=== PATIENT | female | born 1970 | race Two or more races ===

== ENCOUNTER 2017-02-15 17:54 | Emergency (ER) | payer MEDICAID ==
--- NOTE | 2017-02-15 18:15 | EDM.PDOC ---
ED HPI GENERAL MEDICAL PROBLEM - General Chief Complaint: General Stated Complaint: Headache; Neck Pain; s/p surgery Time Seen by Provider: 02/15/17 17:57 Source of Information: Reports: Patient, Old Records, RN, RN Notes Reviewed History Limitations: Reports: No Limitations - History of Present Illness INITIAL COMMENTS - FREE TEXT/NARRATIVE: Patient presents to the ED at [facility] complaining of nausea, neck numbness, left facial numbness, and headache. Patient recently underwent surgery on 02/06/2017 for Grade three and four glenohumeral arthritis with loose bodies. According to old records, surgery was uneventful. Patient states her symptoms began yesterday sometime and have progressively gotten worse. Patient admits to smoking Marijuana and doing Meth today. Onset: Gradual Duration: Getting Worse Left Neck Pain Score (Numeric/FACES): 8 - Related Data Allergies Allergy/AdvReac Type Severity Reaction Status Date / Time buspirone [From BuSpar] Allergy Seizure Verified 02/15/17 18:01 tramadol Allergy Seizure Verified 02/15/17 18:01 Home Meds: Home Meds Aspirin 81 mg PO DAILY 02/15/17 [History] Divalproex Sodium 250 mg PO DAILY 02/15/17 [History] Estradiol [Estradiol] 1 patch TOP WEEKLY 02/15/17 [History] Hydrocodone/Acetaminophen [Hydrocodon-Acetaminophen 5-325] 1 each PO Q4H PRN [History] Ibuprofen [Motrin] 800 mg PO Q8H PRN 02/15/17 [History] Ondansetron HCl [Ondansetron] 4 mg PO Q6H PRN 02/15/17 [History] QUEtiapine [SEROquel] 50 - 100 mg PO BEDTIME 02/15/17 [History] amLODIPine/Valsartan [Amlodipine-Valsartan 5-160 mg] 1 tab PO DAILY 02/15/17 [ History] hydrOXYzine Pamoate [Hydroxyzine Pamoate] 25 mg PO Q6H PRN 02/15/17 [History] Past Medical History Cardiovascular History: Reports: Hypertension Psychiatric History: Reports: Anxiety, Depression - Past Surgical History Female Surgical History: Reports: Hysterectomy Social & Family History - Family History Family Medical History: Noncontributory - Tobacco Use Smoking Status *Q: Current Every Day Smoker Years of Tobacco use: 34 Packs/Tins Daily: 1 - Caffeine Use Caffeine Use: Reports: None - Recreational Drug Use Recreational Drug Use: Yes Drug Use in Last 12 Months: Yes Recreational Drug Type: Reports: Marijuana/Hashish, Methamphetamine Recreational Drug Use Frequency: Weekly ED ROS GENERAL - Review of Systems Review Of Systems: See Below Constitutional: Denies: Fever, Chills, Weakness Respiratory: Denies: Shortness of Breath, Cough Cardiovascular: Denies: Chest Pain, Palpitations GI/Abdominal: Reports: Nausea. Denies: Vomiting Musculoskeletal: Reports: Neck Pain, Shoulder Pain, Muscle Pain, Other (See HPI) Skin: Reports: No Symptoms Neurological: Reports: Headache, Numbness. Denies: Dizziness, Paresthesia, Tingling ED EXAM, GENERAL - Physical Exam Exam: See Below Exam Limited By: No Limitations General Appearance: Alert, No Apparent Distress, Thin, Cachetic Eye Exam: Bilateral Eye: EOMI, Normal Inspection, PERRL Ears: Normal External Exam, Normal Canal, Normal TMs Ear Exam: Bilateral Ear: TM normal Head: Atraumatic, Normocephalic Neck: Supple, Limited Range of Motion (due to pain), Tender Lateral (Left) Respiratory/Chest: No Respiratory Distress, Lungs Clear, Normal Breath Sounds Cardiovascular: Normal Peripheral Pulses, Regular Rate, Rhythm Peripheral Pulses: 2+: Radial (L), Radial (R) GI/Abdominal: Normal Bowel Sounds, Soft, Non-Tender Back Exam: Normal Inspection, Paraspinal Tenderness Extremities: Normal Inspection Neurological: Alert, Oriented, Normal Cognition Skin Exam: Warm, Dry, Intact, Normal Color, No Rash Course - Vital Signs Last Recorded V/S: Last Vital Signs Temp 36.0 C 02/15/17 17:56 Pulse 80 02/15/17 17:56 Resp 20 02/15/17 17:56 BP 145/93 H 02/15/17 19:50 Pulse Ox 100 02/15/17 17:56 - Orders/Labs/Meds Orders: Active Orders 24 hr Category Date Time Status Cervical Spine wo Cont [CT] Stat Exams 02/15/17 18:09 Ordered Head wo Cont [CT] Stat Exams 02/15/17 18:09 Ordered Thoracic Spine wo Cont [CT] Stat Exams 02/15/17 18:09 Taken Sodium Chloride 0.9% [Saline Flush] Med 02/15/17 18:25 Active 10 ml FLUSH ASDIRECTED PRN Peripheral IV Insertion Adult [OM.PC] Routine Oth 02/15/17 18:25 Ordered Medication Orders Sodium Chloride (Saline Flush) 10 ml FLUSH ASDIRECTED PRN PRN Reason: Keep Vein Open Meds: Medications Generic Name Dose Route Start Last Admin Trade Name Freq PRN Reason Stop Dose Admin Sodium Chloride 10 ml 02/15/17 18:25 Saline Flush FLUSH ASDIRECTED PRN Keep Vein Open Discontinued Medications Generic Name Dose Route Start Last Admin Trade Name Freq PRN Reason Stop Dose Admin Clonidine HCl 0.1 mg 02/15/17 18:38 02/15/17 18:42 Catapres PO 02/15/17 18:39 0.1 mg ONETIME ONE Administration Enalaprilat 1.25 mg 02/15/17 18:38 02/15/17 18:43 Vasotec Iv IVPUSH 02/15/17 18:39 1.25 mg ONETIME ONE Administration Lactated Ringer's 1,000 mls @ 999 mls/hr 02/15/17 18:26 02/15/17 18:33 Ringers, Lactated IV 02/15/17 19:26 999 mls/hr ONETIME ONE Administration Ondansetron HCl 4 mg 02/15/17 18:26 02/15/17 18:34 Zofran IVPUSH 02/15/17 18:27 4 mg ONETIME ONE Administration Prochlorperazine Edisylate 10 mg 02/15/17 19:43 02/15/17 19:46 Compazine IV 02/15/17 19:44 10 mg ONETIME ONE Administration - Radiology Interpretation Free Text/Narrative:: CT Head: Normal examination of the brain CT C-Spine: No acute findings in the cervical spine CT T-Spine: Moderate changes of spondylosis diffusely throughout the thoracic spine without significant stenosis See scanned reports in EMR CT Results Date: 02/15/17 CT Results Time: 19:38 Departure - Departure Time of Disposition: 20:03 Disposition: Home, Self-Care 01 Condition: Good Clinical Impression: Postoperative pain of extremity - Discharge Information Instructions: Pain Relief Preoperatively and Postoperatively Referrals: Shen Cedeno PA-C [Primary Care Provider] - Forms: ED Department Discharge Additional Instructions: 1. Stay well hydrated and rest 2. May alternate Tylenol/Advil as needed 3. If you need something stronger for pain, please call your surgeon or Primary provider 4. May apply heat/ice to sore uncomfortable areas 5. Keep follow up appointments with surgeon as scheduled 6. Call with any questions/concerns 7. CT scans were all normal - Problem List Review Problem List Initiated/Reviewed/Updated: Yes - My Orders Last 24 Hours: My Active Orders 02/15/17 18:09 Cervical Spine wo Cont [CT] Stat Head wo Cont [CT] Stat Thoracic Spine wo Cont [CT] Stat 02/15/17 18:25 Sodium Chloride 0.9% [Saline Flush] 10 ml FLUSH ASDIRECTED PRN Peripheral IV Insertion Adult [OM.PC] Routine - Assessment/Plan Last 24 Hours: My Active Orders 02/15/17 18:09 Cervical Spine wo Cont [CT] Stat Head wo Cont [CT] Stat Thoracic Spine wo Cont [CT] Stat 02/15/17 18:25 Sodium Chloride 0.9% [Saline Flush] 10 ml FLUSH ASDIRECTED PRN Peripheral IV Insertion Adult [OM.PC] Routine
[2017-02-15] MEDS ORDERED: Sodium Chloride 0.9% 10 ML Syringe FLUSH PRN (18:25)
[2017-02-15] MEDS ORDERED: Ondansetron 4 MG/2 ML SDV IVPUSH ONE (18:26)
[2017-02-15] MEDS ORDERED: Lactated Ringers 1,000 ML IV ONE (18:26)
[2017-02-15] MEDS ORDERED: Enalaprilat 1.25 MG/ML SDV IVPUSH ONE (18:38)
[2017-02-15] MEDS ORDERED: cloNIDine 0.1 MG Tab PO ONE (18:38)
[2017-02-15] MEDS ORDERED: Prochlorperazine 10 MG/2 ML SDV IV ONE (19:43)
[2017-02-15 20:01] VITALS: BP 162/97
== END 2017-02-15 20:10 | disposition home or self-care (01) ==
LOC: VM.ED 17:54
DX: G89.18 Other acute postprocedural pain (principal); M54.2 Cervicalgia; M47.894 Other spondylosis, thoracic region; I10 Essential (primary) hypertension; F32.9 Major depressive disorder, single episode, unspecified; F17.210 Nicotine dependence, cigarettes, uncomplicated; Z79.899 Other long term (current) drug therapy; Z79.82 Long term (current) use of aspirin; Z88.5 Allergy status to narcotic agent; Z88.8 Allergy status to other drugs, medicaments and biological substances
CPT/HCPCS: 72128; 96361; 96374; 96375; 99284; A9270; J0780; J2405; J7120; 70450; 72125

== ENCOUNTER 2017-08-12 23:01 | Emergency (ER) | payer MEDICAID ==
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
[2017-08-12] MEDS ORDERED: Ibuprofen 200 MG Tab PO ONE (23:44)
[2017-08-13 00:26] VITALS: BP 172/100
== END 2017-08-13 00:25 | disposition home or self-care (01) ==
LOC: VM.ED 23:01
DX: S20.212A Contusion of left front wall of thorax, initial encounter (principal); I10 Essential (primary) hypertension; Z79.899 Other long term (current) drug therapy; Z88.8 Allergy status to other drugs, medicaments and biological substances; Z79.82 Long term (current) use of aspirin; Y04.2XXA Assault by strike against or bumped into by another person, initial encounter
CPT/HCPCS: 71101; 99283; A9270

== ENCOUNTER 2018-05-14 22:37 | Emergency (ER) | payer MEDICAID ==
[2018-05-14] MEDS ORDERED: Sodium Chloride 0.9% 10 ML Syringe FLUSH PRN (23:09)
[2018-05-14] MEDS ORDERED: Enalaprilat 1.25 MG/ML SDV IVPUSH ONE (23:10)
[2018-05-14] MEDS ORDERED: cloNIDine 0.1 MG Tab PO SCH (23:15)
[2018-05-15 00:10] LABS: ANION GAP 12.5 mmol/L (10-20); CHLORIDE,CL 106 mmol/L (98-107); SODIUM,NA 144 mmol/L (136-145)
[2018-05-15 01:34] VITALS: BP 173/109
--- NOTE | 2018-05-15 09:40 | EDM.PDOC ---
ED HPI GENERAL MEDICAL PROBLEM - General Chief Complaint: General Stated Complaint: Hypertension, medical screening Time Seen by Provider: 05/14/18 22:45 Source of Information: Reports: Patient History Limitations: Reports: No Limitations - History of Present Illness INITIAL COMMENTS - FREE TEXT/NARRATIVE: Pt. was arrested tonight. She was found to be hypertensive on intake to the halfway and was sent to ER. Pt. states that her blood pressure always runs this high, often greater than 180/100 at home. She states that she uses methamphetamine regularly. Denies any headache. No chest pain or shortness of breath. No nausea, vomiting, or diarrhea. She states that she took her medications this AM but states that she often forgets to take them. She is currently prescribed propranolol and triamterene/ HCTZ. Pt. states that she has no complaints. Onset Date: 05/14/18 left lateral neck Pain Score (Numeric/FACES): 5 - Related Data Allergies Allergy/AdvReac Type Severity Reaction Status Date / Time buspirone [From BuSpar] Allergy Seizure Verified 05/15/18 01:19 tramadol Allergy Seizure Verified 05/15/18 01:19 Home Meds: Home Meds Aspirin 81 mg PO DAILY 02/15/17 [History] Divalproex Sodium 250 mg PO DAILY 02/15/17 [History] Estradiol 1 patch TOP WEEKLY 02/15/17 [History] Hydrocodone/Acetaminophen [Hydrocodon-Acetaminophen 5-325] 1 each PO Q4H PRN [History] Ibuprofen [Motrin] 800 mg PO Q8H PRN 02/15/17 [History] Ondansetron HCl [Ondansetron] 4 mg PO Q6H PRN 02/15/17 [History] QUEtiapine [SEROquel] 50 - 100 mg PO BEDTIME 02/15/17 [History] amLODIPine/Valsartan [Amlodipine-Valsartan 5-160 mg] 1 tab PO DAILY 02/15/17 [ History] hydrOXYzine pamoate [Hydroxyzine Pamoate] 25 mg PO Q6H PRN 02/15/17 [History] Past Medical History Cardiovascular History: Reports: Hypertension Psychiatric History: Reports: Addiction, Anxiety, Depression Other Psychiatric History: Drug abuse - Past Surgical History Female Surgical History: Reports: Hysterectomy Social & Family History - Family History Family Medical History: Noncontributory - Tobacco Use Smoking Status *Q: Unknown Ever Smoked - Caffeine Use Caffeine Use: Reports: None - Recreational Drug Use Recreational Drug Use: Yes Drug Use in Last 12 Months: Yes Recreational Drug Type: Reports: Methamphetamine Other Recreational Drug Type: Drug abuse/meth ED ROS GENERAL - Review of Systems Review Of Systems: See Below Constitutional: Reports: No Symptoms HEENT: Reports: No Symptoms Respiratory: Reports: No Symptoms Cardiovascular: Reports: Blood Pressure Problem Endocrine: Reports: No Symptoms GI/Abdominal: Reports: No Symptoms : Reports: No Symptoms Musculoskeletal: Reports: No Symptoms Skin: Reports: No Symptoms Neurological: Reports: No Symptoms Psychiatric: Reports: No Symptoms Hematologic/Lymphatic: Reports: No Symptoms Immunologic: Reports: No Symptoms ED EXAM, GENERAL - Physical Exam Exam: See Below Exam Limited By: No Limitations General Appearance: Alert, WD/WN, No Apparent Distress Eye Exam: Bilateral Eye: EOMI, Normal Fundi, Normal Inspection, PERRL Throat/Mouth: Normal Inspection, Normal Lips, Normal Teeth, Normal Gums, Normal Oropharynx, Normal Voice, No Airway Compromise Head: Atraumatic, Normocephalic Neck: Normal Inspection, Supple, Non-Tender, Full Range of Motion Respiratory/Chest: No Respiratory Distress, Lungs Clear, Normal Breath Sounds, No Accessory Muscle Use, Chest Non-Tender Cardiovascular: Normal Peripheral Pulses, Regular Rate, Rhythm, No Edema, No Gallop, No JVD, No Murmur, No Rub GI/Abdominal: Normal Bowel Sounds, Soft, Non-Tender, No Organomegaly, No Distention, No Abnormal Bruit, No Mass Extremities: Normal Inspection, Normal Range of Motion, Non-Tender, Normal Capillary Refill, No Pedal Edema Neurological: Alert, Oriented, CN II-XII Intact, Normal Cognition, Normal Gait, Normal Reflexes, No Motor/Sensory Deficits EKG INTERPRETATION Rhythm: NSR [place]: Normal P-Wave: Present QRS: Normal ST-T: Normal QT: Normal Comparison: No Change Course - Vital Signs Last Recorded V/S: Last Vital Signs Temp 36.1 C 05/14/18 23:40 Pulse 72 05/15/18 00:30 Resp 16 05/14/18 23:40 BP 173/109 H 05/15/18 00:30 Pulse Ox 97 05/14/18 23:40 - Orders/Labs/Meds Orders: Active Orders 24 hr Category Date Time Status EKG Documentation Completion [RC] STAT Care 05/14/18 23:09 Active Peripheral IV Insertion Adult [OM.PC] Routine Oth 05/14/18 23:09 Ordered Labs: Laboratory Tests 05/14/18 05/14/18 Range/Units 23:25 23:25 WBC 6.7 (4.0-10.0) x10^3/uL RBC 4.59 (4.00-5.50) x10^6/uL Hgb 13.5 (12.0-16.0) g/dL Hct 40.9 (33.0-47.0) % MCV 89.1 (78.0-93.0) fL MCH 29.4 (26.0-32.0) pg MCHC 33.0 (32.0-36.0) g/dL RDW Coeff of Chitra 13.9 (10.0-15.0) % Plt Count 187 (130-400) x10^3/uL Neut % (Auto) 67.3 (50.0-80.0) % Lymph % (Auto) 24.5 L (25.0-50.0) % [place] % (Auto) 6.5 (2.0-11.0) % Eos % (Auto) 1.4 (0.0-4.0) % Baso % (Auto) 0.3 (0.2-1.2) % Sodium 144 (136-145) mmol/L Potassium 3.5 (3.5-5.1) mmol/L Chloride 106 (98-107) mmol/L Carbon Dioxide 29 (21-32) mmol/L Anion Gap 12.5 (10-20) mmol/L BUN 13 (7-18) mg/dL Creatinine 0.8 (0.55-1.02) mg/dL Est Cr Clr Drug Dosing TNP Estimated GFR (MDRD) > 60 Glucose 113 H (74-106) mg/dL Calcium 9.1 (8.5-10.1) mg/dL Corrected Calcium 9.58 (8.5-10.1) mg/dL Phosphorus 4.0 (2.6-4.7) mg/dL Magnesium 2.1 (1.8-2.4) mg/dL Total Bilirubin 0.6 (0.2-1.0) mg/dL AST 26 (15-37) U/L ALT 40 (14-59) U/L Alkaline Phosphatase 109 (46-116) U/L Troponin I < 0.017 (<=0.056) ng/mL Total Protein 7.5 (6.4-8.2) g/dL Albumin 3.4 (3.4-5.0) g/dL Globulin 4.1 Albumin/Globulin Ratio 0.83 TSH, Ultra Sensitive 1.979 (0.358-3.74) uIU/mL Meds: Medications Discontinued Medications Generic Name Dose Route Start Last Admin Trade Name Freq PRN Reason Stop Dose Admin Clonidine HCl 0.1 mg 05/14/18 23:15 05/14/18 23:35 Catapres PO 0.1 mg DAILY KELLY Administration Enalaprilat 1.25 mg 05/14/18 23:10 05/14/18 23:29 Vasotec Iv IVPUSH 05/14/18 23:11 1.25 mg ONETIME ONE Administration Sodium Chloride 10 ml 05/14/18 23:09 Saline Flush FLUSH ASDIRECTED PRN Keep Vein Open - Re-Assessments/Exams Free Text/Narrative Re-Assessment/Exam: Pt. was given 0.1mg clonidine and 1.25mg enalaprilat IV. Blood pressure did improve significantly. Will start lisinopril 10mg PO daily and have her follow- up for recheck within the next week in the clinic. Departure - Departure Time of Disposition: 00:35 Disposition: DC/Tfer to Other 70 Clinical Impression: Hypertension - Discharge Information Instructions: Hypertension Referrals: Shen Cedeno PA-C [Primary Care Provider] - Forms: ED Department Discharge Additional Instructions: Follow-up with PCP as soon as possible. In addition to your other medications, start lisinopril 10mg once daily Do not use methamphetamine as it increases your blood pressure - My Orders Last 24 Hours: My Active Orders 05/14/18 23:09 EKG Documentation Completion [RC] STAT Peripheral IV Insertion Adult [OM.PC] Routine - Assessment/Plan Last 24 Hours: My Active Orders 05/14/18 23:09 EKG Documentation Completion [RC] STAT Peripheral IV Insertion Adult [OM.PC] Routine Plan: Follow-up with PCP as soon as possible. In addition to your other medications, start lisinopril 10mg once daily Do not use methamphetamine as it increases your blood pressure
== END 2018-05-15 00:33 | disposition other institution (70) ==
LOC: VM.ED 22:37
DX: I10 Essential (primary) hypertension (principal); F41.9 Anxiety disorder, unspecified; F32.9 Major depressive disorder, single episode, unspecified; Z79.82 Long term (current) use of aspirin; Z79.899 Other long term (current) drug therapy; Z88.6 Allergy status to analgesic agent; Z88.8 Allergy status to other drugs, medicaments and biological substances
CPT/HCPCS: 80053; 83735; 84100; 84443; 84484; 85025; 93005; 99284; A9270

== ENCOUNTER 2018-06-03 01:21 | Emergency (ER) | payer MEDICAID ==
[2018-06-03] MEDS ORDERED: cloNIDine 0.1 MG Tab PO ONE (01:36)
--- NOTE | 2018-06-03 01:56 | EDM.PDOC ---
ED HPI GENERAL MEDICAL PROBLEM - General Chief Complaint: General Time Seen by Provider: 06/03/18 01:30 Source of Information: Reports: Patient History Limitations: Reports: No Limitations - History of Present Illness INITIAL COMMENTS - FREE TEXT/NARRATIVE: Pt. presents to ER with complaints of fatigue, hypertension, and generally not feeling well. Pt. states that she has been experiencing this for several weeks. She was seen in the ER earlier this month to be cleared for incarceration and was found to be extremely hypertensive. At that time she reported that she uses meth regularly and states that she has been taking her blood pressure medications irregularly. She was started on Lisinopril in addition to her Propranolol ER 60mg and Triamterene/HCTZ 37.5/25mg. She states that she has been taking her medications regularly but states that her blood pressure has been very high the past few days. Her BP at home is 214/139 yesterday. Denies any chest pain or shortness of breath. No headache. No nausea, vomiting, or diarrhea. No numbness/tingling in her extremities. She now denies any drug or alcohol use. Denies any recent illness. Onset: Today Onset Date: 06/03/18 Location: Reports: Generalized - Related Data Allergies Allergy/AdvReac Type Severity Reaction Status Date / Time buspirone [From BuSpar] Allergy Seizure Verified 06/03/18 01:25 tramadol Allergy Seizure Verified 06/03/18 01:25 Home Meds: Home Meds Ibuprofen [Motrin] 800 mg PO Q8H PRN 02/15/17 [History] Ondansetron HCl [Ondansetron] 4 mg PO Q6H PRN 02/15/17 [History] QUEtiapine [SEROquel] 50 - 100 mg PO BEDTIME 02/15/17 [History] ClonazePAM [KlonoPIN] 0.5 - 1 mg PO BID PRN 06/03/18 [History] Eszopiclone [Lunesta] 3 mg PO BEDTIME 06/03/18 [History] Meloxicam [Mobic] 7.5 mg PO DAILY 06/03/18 [History] Omeprazole Magnesium [Prilosec Otc] 40 mg PO BID 06/03/18 [History] Propranolol [Inderal LA 24 Hr] 60 mg PO DAILY 06/03/18 [History] Ranitidine [Zantac] 150 mg PO BEDTIME 06/03/18 [History] Triamterene/Hydrochlorothiazid [Dyazide 37.5-25] 1 cap PO DAILY 06/03/18 [ History] Past Medical History Cardiovascular History: Reports: Hypertension Psychiatric History: Reports: Addiction, Anxiety, Depression Other Psychiatric History: Drug abuse - Past Surgical History Female Surgical History: Reports: Hysterectomy Social & Family History - Family History Family Medical History: Noncontributory - Tobacco Use Smoking Status *Q: Current Every Day Smoker Years of Tobacco use: 35 Packs/Tins Daily: 1 - Caffeine Use Caffeine Use: Reports: None - Recreational Drug Use Recreational Drug Use: No ED ROS GENERAL - Review of Systems Review Of Systems: See Below Constitutional: Reports: No Symptoms HEENT: Reports: No Symptoms Respiratory: Reports: No Symptoms Cardiovascular: Reports: No Symptoms Endocrine: Reports: No Symptoms GI/Abdominal: Reports: No Symptoms : Reports: No Symptoms Musculoskeletal: Reports: No Symptoms Skin: Reports: No Symptoms Neurological: Reports: Dizziness, Weakness. Denies: Headache, Numbness, Paresthesia Psychiatric: Reports: No Symptoms Hematologic/Lymphatic: Reports: No Symptoms Immunologic: Reports: No Symptoms ED EXAM, GENERAL - Physical Exam Exam: See Below Exam Limited By: No Limitations General Appearance: Alert, WD/WN, No Apparent Distress Eye Exam: Bilateral Eye: EOMI, PERRL Head: Atraumatic, Normocephalic Neck: Normal Inspection, Supple, Non-Tender, Full Range of Motion Respiratory/Chest: No Respiratory Distress, Lungs Clear, Normal Breath Sounds, No Accessory Muscle Use, Chest Non-Tender Cardiovascular: Normal Peripheral Pulses, Regular Rate, Rhythm, No Edema, No JVD Peripheral Pulses: 4+: Radial (R) GI/Abdominal: Soft, Non-Tender, No Organomegaly, No Mass (Female) Exam: Deferred Rectal (Female) Exam: Deferred Back Exam: Normal Inspection, Full Range of Motion Extremities: Normal Inspection, Normal Range of Motion, Non-Tender, No Pedal Edema, Normal Capillary Refill Neurological: Alert, Oriented, CN II-XII Intact, Normal Cognition, Normal Gait, Normal Reflexes, No Motor/Sensory Deficits Psychiatric: Normal Affect, Normal Mood Skin Exam: Warm, Dry, Intact, Normal Color, No Rash Lymphatic: No Adenopathy EKG INTERPRETATION Rhythm: NSR [place]: Normal P-Wave: Present QRS: Normal ST-T: Normal QT: Normal Course - Vital Signs Last Recorded V/S: Last Vital Signs Temp 36.7 C 06/03/18 01:22 Pulse 81 06/03/18 01:22 Resp 14 06/03/18 01:22 BP 165/119 H 06/03/18 01:48 Pulse Ox 98 06/03/18 01:22 - Orders/Labs/Meds Orders: Active Orders 24 hr Category Date Time Status EKG Documentation Completion [RC] STAT Care 06/03/18 01:31 Active CBC WITH AUTO DIFF [HEME] Stat Lab 06/03/18 01:30 Ordered COMPREHENSIVE METABOLIC PN,CMP [CHEM] Stat Lab 06/03/18 01:30 Ordered CRP [C-REACTIVE PROTEIN] [CHEM] Stat Lab 06/03/18 01:30 Ordered DRUG SCREEN, URINE [URCHEM] Stat Lab 06/03/18 01:54 Ordered ETOH [ETHANOL BLOOD MEDICAL] [CHEM] Stat Lab 06/03/18 01:37 Ordered INR,PT,PROTHROMBIN TIME [COAG] Stat Lab 06/03/18 01:30 Ordered MAGNESIUM [CHEM] Stat Lab 06/03/18 01:30 Ordered PHOSPHORUS [CHEM] Stat Lab 06/03/18 01:30 Ordered TROPONIN I [CHEM] Stat Lab 06/03/18 01:30 Ordered UA W/MICROSCOPIC [URIN] Stat Lab 06/03/18 01:54 Ordered Meds: Medications Discontinued Medications Generic Name Dose Route Start Last Admin Trade Name Freq PRN Reason Stop Dose Admin Clonidine HCl 0.1 mg 06/03/18 01:36 06/03/18 01:48 Catapres PO 06/03/18 01:37 0.1 mg ONETIME ONE Administration Departure - Departure Time of Disposition: 02:38 Disposition: Home, Self-Care 01 Clinical Impression: Methamphetamine abuse, Hypertension - Discharge Information Forms: ED Department Discharge - My Orders Last 24 Hours: My Active Orders 06/03/18 01:30 CBC WITH AUTO DIFF [HEME] Stat COMPREHENSIVE METABOLIC PN,CMP [CHEM] Stat CRP [C-REACTIVE PROTEIN] [CHEM] Stat INR,PT,PROTHROMBIN TIME [COAG] Stat MAGNESIUM [CHEM] Stat PHOSPHORUS [CHEM] Stat TROPONIN I [CHEM] Stat 06/03/18 01:31 EKG Documentation Completion [RC] STAT 06/03/18 01:37 ETOH [ETHANOL BLOOD MEDICAL] [CHEM] Stat 06/03/18 01:54 DRUG SCREEN, URINE [URCHEM] Stat UA W/MICROSCOPIC [URIN] Stat - Assessment/Plan Last 24 Hours: My Active Orders 06/03/18 01:30 CBC WITH AUTO DIFF [HEME] Stat COMPREHENSIVE METABOLIC PN,CMP [CHEM] Stat CRP [C-REACTIVE PROTEIN] [CHEM] Stat INR,PT,PROTHROMBIN TIME [COAG] Stat MAGNESIUM [CHEM] Stat PHOSPHORUS [CHEM] Stat TROPONIN I [CHEM] Stat 06/03/18 01:31 EKG Documentation Completion [RC] STAT 06/03/18 01:37 ETOH [ETHANOL BLOOD MEDICAL] [CHEM] Stat 06/03/18 01:54 DRUG SCREEN, URINE [URCHEM] Stat UA W/MICROSCOPIC [URIN] Stat Plan: Pt. did test positive for meth. Advised her to stop using this as it inhibits her ability to sleep. She was advised to use take her antihypertensives at the same time every day. Discussed sleep hygiene and the importance of getting 8 hours of sleep, the circadian rhythm, etc. She was advised to follow-up with her PCP in 2 weeks for recheck.
[2018-06-03 02:25] VITALS: BP 160/101
[2018-06-03 02:32] LABS: CHLORIDE,CL 108 mmol/L (98-107); SODIUM,NA 145 mmol/L (136-145)
[2018-06-03 02:34] LABS: ANION GAP 12.3 mmol/L (10-20)
== END 2018-06-03 02:42 | disposition home or self-care (01) ==
LOC: VM.ED 01:21
DX: F15.10 Other stimulant abuse, uncomplicated (principal); I10 Essential (primary) hypertension; F17.210 Nicotine dependence, cigarettes, uncomplicated; F41.9 Anxiety disorder, unspecified; F32.9 Major depressive disorder, single episode, unspecified; Z79.899 Other long term (current) drug therapy; Z88.6 Allergy status to analgesic agent; Z88.8 Allergy status to other drugs, medicaments and biological substances
CPT/HCPCS: 36415; 80053; 80305; 81001; 83735; 84100; 84484; 85025; 85610; 86140; 93005; 99283; A9270; G0480

== ENCOUNTER 2018-06-12 10:44 | Emergency (ER) | payer MEDICAID ==
[2018-06-12] MEDS ORDERED: Sodium Chloride 0.9% 10 ML Syringe FLUSH PRN (11:11)
[2018-06-12] MEDS: Labetalol 20 MG/4 ML Syringe IVPUSH ONE (11:28)
[2018-06-12] MEDS: cloNIDine 0.1 MG Tab PO ONE (11:28)
[2018-06-12 11:59] LABS: CHLORIDE,CL 104 mmol/L (98-107); SODIUM,NA 144 mmol/L (136-145)
[2018-06-12 12:00] LABS: ANION GAP 12.3 mmol/L (10-20)
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
[2018-06-12 13:06] VITALS: BP 158/107
== END 2018-06-12 13:00 | disposition home or self-care (01) ==
LOC: VM.ED 10:44
DX: I10 Essential (primary) hypertension (principal); F32.9 Major depressive disorder, single episode, unspecified; F41.9 Anxiety disorder, unspecified; F17.210 Nicotine dependence, cigarettes, uncomplicated; Z88.8 Allergy status to other drugs, medicaments and biological substances; Z88.5 Allergy status to narcotic agent; Z79.899 Other long term (current) drug therapy
CPT/HCPCS: 80053; 80305; 81001; 83735; 83880; 84100; 84443; 84484; 85025; 85610; 86140; 93005; 96374; 99284; A9270; G0480; J3490

== ENCOUNTER 2019-09-29 15:59 | Emergency (ER) | payer MEDICAID ==
[2019-09-29] MEDS: Sodium Chloride 0.9% 10 ML Syringe FLUSH PRN (16:30)
[2019-09-29] MEDS: Labetalol 20 MG/4 ML Syringe IVPUSH ONE (16:45)
[2019-09-29 17:15] LABS: CHLORIDE,CL 104 mmol/L (98-107); SODIUM,NA 140 mmol/L (136-145)
[2019-09-29 17:19] LABS: ANION GAP 8.2 mmol/L (10-20)
[2019-09-29 17:34] LABS: BARBITURATE SCREEN,URINE NEGATIVE (NEGATIVE); BENZODIAZEPINES SCREEN,URINE NEGATIVE (NEGATIVE); EDDP,URINE SCREEN NEGATIVE (NEGATIVE); METHAMPHETAMINE SCREEN, URINE POSITIVE (NEGATIVE); TCA SCREEN,URINE NEGATIVE (NEGATIVE); THC SCREEN,URINE 50 NG/ML POSITIVE (NEGATIVE)
--- NOTE | 2019-09-29 20:05 | EDM.PDOC ---
ED HPI GENERAL MEDICAL PROBLEM - General Stated Complaint: SOB, CHEST PAIN Time Seen by Provider: 09/29/19 15:59 Source of Information: Reports: Patient History Limitations: Reports: No Limitations - History of Present Illness INITIAL COMMENTS - FREE TEXT/NARRATIVE: Pt. presents to ER with numerous complaints. Her primary complaint is of chest pain and hypertension. Pt. admits to starting to use methamphetamine again, and previously had not been using it. She states that she has been experiencing intermittent chest discomfort for over a month. Pt. BP has been elevated in clinic (180/100 range). She states that she has not been taking her antihypertensive medication for "a long time", neither her inderal or her dyazide. She denies any headache. Shortness of breath. Denies any nausea or vomiting. Pt. is also concerned that she has a dental infection. She has severe caries to most of her teeth. Pt. states that she does not have a dentist because she "can't afford it". When asked if you has consulted the [facility] in [place] or [place], she stated that she didn't drive and doesn't know anyone with a car. Pt. has noticed some swelling to the lymph nodes and her axillae. Pt. denies any sinus congestion. No sore throat. No fever or chills. No cough or chest congestion. She denies any abdominal pain, diarrhea, vomiting, or bloody stools. Onset: Today Location: Reports: Head, Chest, Generalized Quality: Reports: Ache - Related Data Allergies Allergy/AdvReac Type Severity Reaction Status Date / Time buspirone [From BuSpar] Allergy Seizure Verified 09/29/19 20:01 tramadol Allergy Seizure Verified 09/29/19 20:01 Home Meds: Home Meds Ibuprofen [Motrin] 800 mg PO Q8H PRN 02/15/17 [History] QUEtiapine [SEROquel] 50 - 100 mg PO BEDTIME 02/15/17 [History] ondansetron HCL [Ondansetron] 4 mg PO Q6H PRN 02/15/17 [History] ClonazePAM [KlonoPIN] 0.5 - 1 mg PO BID PRN 06/03/18 [History] Eszopiclone [Lunesta] 3 mg PO BEDTIME 06/03/18 [History] Meloxicam [Mobic] 7.5 mg PO DAILY 06/03/18 [History] Omeprazole Magnesium [Prilosec Otc] 40 mg PO BID 06/03/18 [History] Propranolol [Inderal LA 24 Hr] 60 mg PO DAILY 06/03/18 [History] Ranitidine [Zantac] 150 mg PO BEDTIME 06/03/18 [History] Triamterene/Hydrochlorothiazid [Dyazide 37.5-25] 1 cap PO DAILY 06/03/18 [History] Past Medical History Cardiovascular History: Reports: Hypertension Psychiatric History: Reports: Addiction, Anxiety, Depression Other Psychiatric History: Drug abuse - Past Surgical History Female Surgical History: Reports: Hysterectomy Social & Family History - Family History Family Medical History: Noncontributory - Caffeine Use Caffeine Use: Reports: None ED ROS GENERAL - Review of Systems Review Of Systems: See Below Constitutional: Reports: Fatigue HEENT: Reports: Dental Pain Respiratory: Reports: No Symptoms Cardiovascular: Reports: Chest Pain, Blood Pressure Problem Endocrine: Reports: No Symptoms GI/Abdominal: Reports: No Symptoms : Reports: No Symptoms Musculoskeletal: Reports: No Symptoms Skin: Reports: No Symptoms Neurological: Reports: No Symptoms Psychiatric: Reports: No Symptoms Hematologic/Lymphatic: Reports: No Symptoms Immunologic: Reports: No Symptoms ED EXAM, GENERAL - Physical Exam Exam: See Below Exam Limited By: No Limitations General Appearance: Alert, WD/WN, No Apparent Distress Eye Exam: Bilateral Eye: EOMI, Normal Fundi, Normal Inspection, PERRL Throat/Mouth: Normal Lips, Normal Voice, No Airway Compromise, Other (severe dental caries and active periodontal infection in several places. No large abscesses noted. ) Head: Atraumatic, Normocephalic Neck: Normal Inspection, Lymphadenopathy (L), Lymphadenopathy (R) Respiratory/Chest: No Respiratory Distress, Lungs Clear, Normal Breath Sounds, No Accessory Muscle Use, Chest Non-Tender Cardiovascular: Normal Peripheral Pulses, Regular Rate, Rhythm, No Edema, No Murmur GI/Abdominal: Normal Bowel Sounds, Soft, Non-Tender, No Mass, Pelvis Stable (Female) Exam: Deferred Rectal (Female) Exam: Deferred Back Exam: Full Range of Motion Extremities: Normal Inspection, Normal Range of Motion, Non-Tender, No Pedal Edema, Normal Capillary Refill Neurological: Alert, Oriented, CN II-XII Intact, Normal Cognition, No Motor/Sensory Deficits Psychiatric: Normal Affect, Normal Mood Skin Exam: Warm, Dry, Intact, Normal Color, No Rash Lymphatic: No Adenopathy EKG INTERPRETATION Rhythm: NSR [place]: Normal P-Wave: Present QRS: Normal ST-T: Normal QT: Normal Course - Orders/Labs/Meds Orders: Active Orders 24 hr Category Date Time Status EKG Documentation Completion [RC] STAT Care 09/29/19 16:32 Active Sodium Chloride 0.9% [Saline Flush] Med 09/29/19 16:32 Active 10 ml FLUSH ASDIRECTED PRN Peripheral IV Insertion Adult [OM.PC] Routine Oth 09/29/19 16:32 Ordered Medication Orders Sodium Chloride (Saline Flush) 10 ml FLUSH ASDIRECTED PRN PRN Reason: Keep Vein Open Labs: Laboratory Tests 09/29/19 09/29/19 09/29/19 Range/Units 16:08 16:20 16:20 WBC 7.5 (4.0-10.0) x10^3/uL RBC 4.26 (4.00-5.50) x10^6/uL Hgb 12.3 D (12.0-16.0) g/dL Hct 36.5 (33.0-47.0) % MCV 85.7 D (78.0-93.0) fL MCH 28.9 (26.0-32.0) pg MCHC 33.7 (32.0-36.0) g/dL RDW Coeff of Chitra 13.2 (10.0-15.0) % Plt Count 182 (130-400) x10^3/uL Neut % (Auto) 63.9 (50.0-80.0) % Lymph % (Auto) 27.5 (25.0-50.0) % [place] % (Auto) 6.2 (2.0-11.0) % Eos % (Auto) 2.1 (0.0-4.0) % Baso % (Auto) 0.3 (0.2-1.2) % PT 9.8 (9.5-12.3) SEC INR 0.9 L (2.0-3.5) Sodium (136-145) mmol/L Potassium (3.5-5.1) mmol/L Chloride (98-107) mmol/L Carbon Dioxide (21-32) mmol/L Anion Gap (10-20) mmol/L BUN (7-18) mg/dL Creatinine (0.55-1.02) mg/dL Est Cr Clr Drug Dosing Estimated GFR (MDRD) Glucose (74-106) mg/dL Calcium (8.5-10.1) mg/dL Corrected Calcium (8.5-10.1) mg/dL Magnesium (1.8-2.4) mg/dL Total Bilirubin (0.2-1.0) mg/dL AST (15-37) U/L ALT (14-59) U/L Alkaline Phosphatase (46-116) U/L Troponin I (<=0.056) ng/mL Total Protein (6.4-8.2) g/dL Albumin (3.4-5.0) g/dL Globulin Albumin/Globulin Ratio Urine Color (YELLOW) Urine Appearance (CLEAR) Urine pH (5.0-8.0) Ur Specific [place] Urine Protein (NEGATIVE) mg/dL Urine Glucose (UA) (NEGATIVE) mg/dL Urine Ketones (NEGATIVE) mg/dL Urine Occult Blood (NEGATIVE) Urine Nitrite (NEGATIVE) Urine Bilirubin (NEGATIVE) Urine Urobilinogen (0.2) EU/dL Ur Leukocyte Esterase (NEGATIVE) Urine RBC (NOT SEEN) /HPF Urine WBC (NOT SEEN) /HPF Ur Squamous Epith Cells (NEGATIVE) /HPF Amorphous Sediment Urine Bacteria (NEGATIVE) /HPF Urine Mucus (NEGATIVE) /LPF Urine Opiates Screen (NEGATIVE) Ur Buprenorphine Scrn (NEGATIVE) Ur Oxycodone Screen (NEGATIVE) Ur EDDP (Meth Metab) (NEGATIVE) Urine Methadone Screen (NEGATIVE) Ur Barbiturates Screen (NEGATIVE) Ur Tricyclics Screen (NEGATIVE) Ur Phencyclidine Scrn (NEGATIVE) Ur Amphetamine Screen (NEGATIVE) U Methamphetamines Scrn (NEGATIVE) Urine MDMA Screen (NEGATIVE) U Benzodiazepines Scrn (NEGATIVE) U Cocaine Metab Screen (NEGATIVE) U Marijuana (THC) Screen (NEGATIVE) COVID-19 (SIGIFREDO) Negative (NEGATIVE) 09/29/19 09/29/19 09/29/19 Range/Units 16:20 17:15 17:15 WBC (4.0-10.0) x10^3/uL RBC (4.00-5.50) x10^6/uL Hgb (12.0-16.0) g/dL Hct (33.0-47.0) % MCV (78.0-93.0) fL MCH (26.0-32.0) pg MCHC (32.0-36.0) g/dL RDW Coeff of Chitra (10.0-15.0) % Plt Count (130-400) x10^3/uL Neut % (Auto) (50.0-80.0) % Lymph % (Auto) (25.0-50.0) % [place] % (Auto) (2.0-11.0) % Eos % (Auto) (0.0-4.0) % Baso % (Auto) (0.2-1.2) % PT (9.5-12.3) SEC INR (2.0-3.5) Sodium 140 (136-145) mmol/L Potassium 3.2 L (3.5-5.1) mmol/L Chloride 104 (98-107) mmol/L Carbon Dioxide 31 (21-32) mmol/L Anion Gap 8.2 L (10-20) mmol/L BUN 16 (7-18) mg/dL Creatinine 0.9 (0.55-1.02) mg/dL Est Cr Clr Drug Dosing TNP Estimated GFR (MDRD) > 60 Glucose 107 H (74-106) mg/dL Calcium 7.9 L (8.5-10.1) mg/dL Corrected Calcium 8.46 L (8.5-10.1) mg/dL Magnesium 1.8 (1.8-2.4) mg/dL Total Bilirubin 0.5 (0.2-1.0) mg/dL AST 22 (15-37) U/L ALT 26 (14-59) U/L Alkaline Phosphatase 100 (46-116) U/L Troponin I < 0.017 (<=0.056) ng/mL Total Protein 7.0 (6.4-8.2) g/dL Albumin 3.3 L (3.4-5.0) g/dL Globulin 3.7 Albumin/Globulin Ratio 0.89 Urine Color Yellow (YELLOW) Urine Appearance Slightly cloudy H (CLEAR) Urine pH 6.0 (5.0-8.0) Ur Specific [place] 1.025 Urine Protein Negative (NEGATIVE) mg/dL Urine Glucose (UA) Negative (NEGATIVE) mg/dL Urine Ketones Trace H (NEGATIVE) mg/dL Urine Occult Blood Trace-intact H (NEGATIVE) Urine Nitrite Negative (NEGATIVE) Urine Bilirubin Small H (NEGATIVE) Urine Urobilinogen 1.0 (0.2) EU/dL Ur Leukocyte Esterase Negative (NEGATIVE) Urine RBC 5-10 H (NOT SEEN) /HPF Urine WBC 0-5 (NOT SEEN) /HPF Ur Squamous Epith Cells Few H (NEGATIVE) /HPF Amorphous Sediment Few Urine Bacteria Few H (NEGATIVE) /HPF Urine Mucus Many H (NEGATIVE) /LPF Urine Opiates Screen Negative (NEGATIVE) Ur Buprenorphine Scrn Negative (NEGATIVE) Ur Oxycodone Screen Negative (NEGATIVE) Ur EDDP (Meth Metab) Negative (NEGATIVE) Urine Methadone Screen Negative (NEGATIVE) Ur Barbiturates Screen Negative (NEGATIVE) Ur Tricyclics Screen Negative (NEGATIVE) Ur Phencyclidine Scrn Negative (NEGATIVE) Ur Amphetamine Screen Positive H (NEGATIVE) U Methamphetamines Scrn Positive H (NEGATIVE) Urine MDMA Screen Negative (NEGATIVE) U Benzodiazepines Scrn Negative (NEGATIVE) U Cocaine Metab Screen Negative (NEGATIVE) U Marijuana (THC) Screen Positive H (NEGATIVE) COVID-19 (SIGIFREDO) (NEGATIVE) Meds: Medications Generic Name Dose Route Start Last Admin Trade Name Freq PRN Reason Stop Dose Admin Sodium Chloride 10 ml 09/29/19 16:32 Saline Flush FLUSH ASDIRECTED PRN Keep Vein Open Discontinued Medications Generic Name Dose Route Start Last Admin Trade Name Freq PRN Reason Stop Dose Admin Labetalol HCl 20 mg 09/29/19 16:34 Normodyne IVPUSH 09/29/19 16:35 NOW ONE Protocol - Re-Assessments/Exams Free Text/Narrative Re-Assessment/Exam: Pt. was given labetolol 20mg IV. BP improved to the 160/100 range and patient reported she felt much better. Contacted pt. pharmacy. She has refills for her hypertensive medications. These were reordered and the staff was able to deliver them, as well as a script for Augmentin to ER so she could start them today (pharmacy closed prior to discharge of patient). Departure - Departure Time of Disposition: 18:00 Disposition: Home, Self-Care 01 Condition: Good Clinical Impression: Hypertension, Methamphetamine abuse, Chest pain - Discharge Information Instructions: Amoxicillin; Clavulanic Acid tablets, Dental Abscess, [id number], Hypertension, Adult, [id number] Referrals: Shen Cedeno PA-C [Primary Care Provider] - Additional Instructions: Augmentin 875mg 1 tab twice daily for 10 days Restart your blood pressure medications. You need to get your BP under control. Your BP being elevated is likely contributing to how you are feeling. You need to have numerous teeth removed. You are not going to be able to have then removed until your BP is better controlled. Stop using methamphetamine. This contributes to your blood pressure being elevated as well, and makes you feel anxious. Recheck in clinic in 10-14 days, sooner if not gradually improving. - Problem List Review Problem List Initiated/Reviewed/Updated: Yes - My Orders Last 24 Hours: My Active Orders 09/29/19 16:32 EKG Documentation Completion [RC] STAT Sodium Chloride 0.9% [Saline Flush] 10 ml FLUSH ASDIRECTED PRN Peripheral IV Insertion Adult [OM.PC] Routine - Assessment/Plan Last 24 Hours: My Active Orders 09/29/19 16:32 EKG Documentation Completion [RC] STAT Sodium Chloride 0.9% [Saline Flush] 10 ml FLUSH ASDIRECTED PRN Peripheral IV Insertion Adult [OM.PC] Routine Plan: Augmentin 875mg 1 tab twice daily for 10 days Restart your blood pressure medications. You need to get your BP under control. Your BP being elevated is likely contributing to how you are feeling. You need to have numerous teeth removed. You are not going to be able to have then removed until your BP is better controlled. Stop using methamphetamine. This contributes to your blood pressure being elevated as well, and makes you feel anxious. Recheck in clinic in 10-14 days, sooner if not gradually improving.
[2019-09-29 20:20] VITALS: PULSE 81
[2019-09-29 20:40] VITALS: BP 158/102
== END 2019-09-29 17:49 | disposition home or self-care (01) ==
LOC: VM.ED 15:59
DX: R07.9 Chest pain, unspecified (principal); I10 Essential (primary) hypertension; F15.10 Other stimulant abuse, uncomplicated; K05.20 Aggressive periodontitis, unspecified; K02.9 Dental caries, unspecified; F41.9 Anxiety disorder, unspecified; F32.9 Major depressive disorder, single episode, unspecified; Z88.5 Allergy status to narcotic agent; Z88.8 Allergy status to other drugs, medicaments and biological substances; Z20.828 Contact with and (suspected) exposure to other viral communicable diseases; Z79.899 Other long term (current) drug therapy; Z90.710 Acquired absence of both cervix and uterus
CPT/HCPCS: 80053; 80305; 81001; 83735; 84484; 85025; 85610; 87635; 93005; 93010; 96374; 99284; 99285; J3490; U0002

== ENCOUNTER 2020-04-28 05:59 | Emergency (ER) | payer MEDICAID ==
[2020-04-28] MEDS ORDERED: Sodium Chloride 0.9% 10 ML Syringe FLUSH PRN (06:29)
[2020-04-28] MEDS ORDERED: Lactated Ringers 1,000 ML IV ONE (06:30)
[2020-04-28] MEDS ORDERED: Prochlorperazine 10 MG/2 ML SDV IV ONE (06:30)
--- NOTE | 2020-04-28 06:36 | EDM.PDOC ---
ED HPI GENERAL MEDICAL PROBLEM - General Source of Information: Reports: Patient, EMS Face/Facial Pain Score (Numeric/FACES): 7 <Viktoria Gary - Last Filed: 04/28/20 06:52> <Karthik Jessica - Last Filed: 04/28/20 08:26> - General Chief Complaint: Gastrointestinal Problem Stated Complaint: nausea/vomiting Time Seen by Provider: 04/28/20 06:24 - History of Present Illness INITIAL COMMENTS - FREE TEXT/NARRATIVE: Miranda is a 49 y/o female who is brought to the ER by EMS after she threw up this AM 5 times. She reports that yesterday evening she felt dizzy and could hardly walk and then she became nauseated. She did not throw up until this AM. No fever or diarrhea. She is also currently on Clindamycin for a dental infection. She does admit to last using marijauna and meth 4 days ago. She also has not been taking her blood pressure meds regularly. Said she sometimes feels palpitations. (Viktoria Gary) - Related Data Allergies Allergy/AdvReac Type Severity Reaction Status Date / Time buspirone [From BuSpar] Allergy Seizure Verified 04/28/20 06:13 tramadol Allergy Seizure Verified 04/28/20 06:13 Home Meds: Home Meds Ibuprofen [Motrin] 800 mg PO Q8H PRN 02/15/17 [History] QUEtiapine [SEROquel] 50 - 100 mg PO BEDTIME 02/15/17 [History] ondansetron HCL [Ondansetron] 4 mg PO Q6H PRN 02/15/17 [History] ClonazePAM [KlonoPIN] 0.5 - 1 mg PO BID PRN 06/03/18 [History] Eszopiclone [Lunesta] 3 mg PO BEDTIME 06/03/18 [History] Meloxicam [Mobic] 7.5 mg PO DAILY 06/03/18 [History] Omeprazole Magnesium [Prilosec Otc] 40 mg PO BID 06/03/18 [History] Propranolol [Inderal LA 24 Hr] 60 mg PO DAILY 06/03/18 [History] Ranitidine [Zantac] 150 mg PO BEDTIME 06/03/18 [History] Triamterene/Hydrochlorothiazid [Dyazide 37.5-25] 1 cap PO DAILY 06/03/18 [History] Meclizine [Antivert] 25 mg PO TID PRN #9 tab.chew 04/28/20 [Rx] Potassium Chloride 20 meq PO DAILY #5 tablet.er 04/28/20 [Rx] Past Medical History Cardiovascular History: Reports: Hypertension Psychiatric History: Reports: Addiction, Anxiety, Depression Other Psychiatric History: Drug abuse - Past Surgical History Female Surgical History: Reports: Hysterectomy Musculoskeletal Surgical History: Reports: Shoulder Surgery <Viktoria Gary Filed: 04/28/20 06:52> Social & Family History - Family History Family Medical History: No Pertinent Family History - Tobacco Use Tobacco Use Status *Q: Current Every Day Tobacco User Years of Tobacco use: 20 Packs/Tins Daily: 0.5 - Caffeine Use Caffeine Use: Reports: None - Recreational Drug Use Recreational Drug Use: Yes Drug Use in Last 12 Months: Yes Recreational Drug Type: Reports: Marijuana/Hashish, Methamphetamine Recreational Drug Use Frequency: Weekly Recreational Drug Last Use: 4 days ago <Viktoria Gary Filed: 04/28/20 06:52> Review of Systems - Review of Systems Review Of Systems: See Below Constitutional: Reports: Weakness Eyes: Reports: No Symptoms Ears: Reports: No Symptoms Nose: Reports: No Symptoms Mouth/Throat: Reports: No Symptoms Respiratory: Reports: No Symptoms Cardiovascular: Reports: Palpitations GI/Abdominal: Reports: Nausea, Vomiting Genitourinary: Reports: No Symptoms Musculoskeletal: Reports: No Symptoms Skin: Reports: No Symptoms Neurological: Reports: Dizziness <Viktoria Gary Filed: 04/28/20 06:52> ED EXAM, GENERAL - Physical Exam Exam: See Below General Appearance: Alert, WD/WN, No Apparent Distress (Adult female.) Eye Exam: Bilateral Eye: PERRL Ears: Normal External Exam, Normal Canal, Hearing Grossly Normal Nose: Normal Inspection, Normal Mucosa, No Blood Throat/Mouth: Normal Inspection, Normal Lips, Normal Voice Head: Atraumatic, Normocephalic Neck: Normal Inspection, Supple, Non-Tender Respiratory/Chest: No Respiratory Distress, Lungs Clear, Chest Non-Tender Cardiovascular: Normal Peripheral Pulses, Regular Rate, Rhythm, No Murmur GI/Abdominal: Normal Bowel Sounds, Soft, Non-Tender (Female) Exam: Deferred Rectal (Female) Exam: Deferred Back Exam: Normal Inspection Extremities: Normal Inspection, Normal Range of Motion, Normal Capillary Refill Neurological: Alert, Oriented, CN II-XII Intact, Normal Cognition, No Motor/Sensory Deficits Psychiatric: Normal Affect, Normal Mood Skin Exam: Warm, Dry, Intact, Normal Color, No Rash <Viktoria Gary - Last Filed: 04/28/20 06:52> #1 Interpretation EKG Date: 04/28/20 Time: 06:45 Rhythm: NSR Rate (Beats/Min): 61 [place]: Normal P-Wave: Present QRS: Normal ST-T: Normal QT: Normal <Viktoria Gary - Last Filed: 04/28/20 06:52> Course <Viktoria Gary - Last Filed: 04/28/20 06:52> <Karthik Jessica - Last Filed: 04/28/20 08:26> - Vital Signs Text/Narrative:: 0624 The patient was seen by the AGILE TE[facility]. Labs and EKG ordered. She was given a liter of LR and Compazine 10mg IVP. 0700 Report given to oncoming provider, Matt Jessica CNP. (Viktoria Gary) Last Recorded V/S: Last Vital Signs Temp 96.0 F L 04/28/20 06:14 Pulse 75 04/28/20 08:01 Resp 18 04/28/20 07:25 BP 136/84 04/28/20 08:01 Pulse Ox 98 04/28/20 07:25 - Orders/Labs/Meds Orders: Active Orders 24 hr Category Date Time Status EKG Documentation Completion [RC] STAT Care 04/28/20 06:36 Active Sodium Chloride 0.9% [Saline Flush] Med 04/28/20 06:29 Active 10 ml FLUSH ASDIRECTED PRN Saline Lock Insert [OM.PC] Stat Oth 04/28/20 06:29 Ordered Labs: Laboratory Tests 04/28/20 04/28/20 04/28/20 Range/Units 06:40 06:40 06:40 WBC 8.1 (4.0-10.0) x10^3/uL RBC 4.77 (4.00-5.50) x10^6/uL Hgb 13.9 D (12.0-16.0) g/dL Hct 41.3 (33.0-47.0) % MCV 86.6 (78.0-93.0) fL MCH 29.1 (26.0-32.0) pg MCHC 33.7 (32.0-36.0) g/dL RDW Coeff of Chitra 13.7 (10.0-15.0) % Plt Count 185 (130-400) x10^3/uL Neut % (Auto) 77.0 (50.0-80.0) % Lymph % (Auto) 15.6 L (25.0-50.0) % [place] % (Auto) 5.3 (2.0-11.0) % Eos % (Auto) 2.0 (0.0-4.0) % Baso % (Auto) 0.1 L (0.2-1.2) % Sodium 141 (136-145) mmol/L Potassium 3.0 L (3.5-5.1) mmol/L Chloride 103 (98-107) mmol/L Carbon Dioxide 29 (21-32) mmol/L Anion Gap 12.0 (5-15) mmol/L BUN 12 (7-18) mg/dL Creatinine 0.7 (0.55-1.02) mg/dL Est Cr Clr Drug Dosing 98.07 mL/min Estimated GFR (MDRD) > 60 Glucose 104 (74-106) mg/dL Calcium 8.4 L (8.5-10.1) mg/dL Corrected Calcium 8.64 (8.5-10.1) mg/dL Magnesium 2.0 (1.8-2.4) mg/dL Total Bilirubin 0.7 (0.2-1.0) mg/dL AST 31 (15-37) U/L ALT 38 (14-59) U/L Alkaline Phosphatase 113 (46-116) U/L Troponin I High Sens 7 (<=51) ng/L C-Reactive Protein < 0.2 (<=0.9) mg/dL Total Protein 7.7 (6.4-8.2) g/dL Albumin 3.7 (3.4-5.0) g/dL Globulin 4.0 Albumin/Globulin Ratio 0.93 Amylase 68 (25-115) U/L Lipase 218 (73-393) U/L Urine Opiates Screen (NEGATIVE) Ur Buprenorphine Scrn (NEGATIVE) Ur Oxycodone Screen (NEGATIVE) Ur EDDP (Meth Metab) (NEGATIVE) Urine Methadone Screen (NEGATIVE) Ur Barbituates Screen (NEGATIVE) Ur Tricyclics Screen (NEGATIVE) Ur Phencyclidine Scrn (NEGATIVE) Ur Amphetamines Screen (NEGATIVE) U Methamphetamines Scrn (NEGATIVE) Urine MDMA Screen (NEGATIVE) U Benzodiazepines Scrn (NEGATIVE) Urine Cocaine Screen (NEGATIVE) U Marijuana (THC) Screen (NEGATIVE) Ethyl Alcohol < 3 (0-3) mg/dL 04/28/20 Range/Units 07:19 WBC (4.0-10.0) x10^3/uL RBC (4.00-5.50) x10^6/uL Hgb (12.0-16.0) g/dL Hct (33.0-47.0) % MCV (78.0-93.0) fL MCH (26.0-32.0) pg MCHC (32.0-36.0) g/dL RDW Coeff of Chitra (10.0-15.0) % Plt Count (130-400) x10^3/uL Neut % (Auto) (50.0-80.0) % Lymph % (Auto) (25.0-50.0) % [place] % (Auto) (2.0-11.0) % Eos % (Auto) (0.0-4.0) % Baso % (Auto) (0.2-1.2) % Sodium (136-145) mmol/L Potassium (3.5-5.1) mmol/L Chloride (98-107) mmol/L Carbon Dioxide (21-32) mmol/L Anion Gap (5-15) mmol/L BUN (7-18) mg/dL Creatinine (0.55-1.02) mg/dL Est Cr Clr Drug Dosing mL/min Estimated GFR (MDRD) Glucose (74-106) mg/dL Calcium (8.5-10.1) mg/dL Corrected Calcium (8.5-10.1) mg/dL Magnesium (1.8-2.4) mg/dL Total Bilirubin (0.2-1.0) mg/dL AST (15-37) U/L ALT (14-59) U/L Alkaline Phosphatase (46-116) U/L Troponin I High Sens (<=51) ng/L C-Reactive Protein (<=0.9) mg/dL Total Protein (6.4-8.2) g/dL Albumin (3.4-5.0) g/dL Globulin Albumin/Globulin Ratio Amylase (25-115) U/L Lipase (73-393) U/L Urine Opiates Screen Negative (NEGATIVE) Ur Buprenorphine Scrn Negative (NEGATIVE) Ur Oxycodone Screen Negative (NEGATIVE) Ur EDDP (Meth Metab) Negative (NEGATIVE) Urine Methadone Screen Negative (NEGATIVE) Ur Barbituates Screen Negative (NEGATIVE) Ur Tricyclics Screen Negative (NEGATIVE) Ur Phencyclidine Scrn Negative (NEGATIVE) Ur Amphetamines Screen Positive H (NEGATIVE) U Methamphetamines Scrn Positive H (NEGATIVE) Urine MDMA Screen Negative (NEGATIVE) U Benzodiazepines Scrn Negative (NEGATIVE) Urine Cocaine Screen Negative (NEGATIVE) U Marijuana (THC) Screen Positive H (NEGATIVE) Ethyl Alcohol (0-3) mg/dL - Re-Assessments/Exams Free Text/Narrative Re-Assessment/Exam: 04/28/20 08:25 I assumed care of this patient at shift change 0 700 She did receive fluids and Compazine. She also received potassium oral liquid solution 40 mEq for potassium of 3.0 with a normal magnesium. She now rests comfortably on the bed. Her nausea and vomiting is resolved. She has a small amount of lightheadedness upon standing there is no vertigo sensation. Her blood pressure is improved likely down to the 130s systolically 80s diastolically. She does feel quite a bit better she has no abdominal pain. We will discharge her home with Antivert for dizziness nausea vomiting as well as potassium supplementation. She needs to recheck her potassium in the clinic in the next 5 days. She is comfortable with this plan and her questions are answered. (Karthik Jessica) Departure <Viktoria Gary - Last Filed: 04/28/20 06:52> - Departure Time of Disposition: 08:11 <Karthik Jessica - Last Filed: 04/28/20 08:26> - Departure Disposition: Home, Self-Care 01 Clinical Impression: Methamphetamine abuse, Hypokalemia, Dizziness, Dehydration Nausea & vomiting Qualifiers: Vomiting type: unspecified Vomiting Intractability: unspecified Qualified Code(s): R11.2 - Nausea with vomiting, unspecified - Discharge Information Instructions: Nausea and Vomiting, Adult, [id number], Dehydration, Adult, [id number], Dehydration, Elderly, [id number] Forms: ED Department Discharge Additional Instructions: Home today rest. Plenty of fluids especially electrolyte containing fluids like Gatorade and or Powerade. Make sure and eat regular small frequent meals. For dizziness nausea Antivert 25 mg 1 tablet three times a day as needed. Rx sent to [facility]. See the [employer] for assistance with your recreational drug usage if you are interested. For your potassium, 1 tablet daily for the next 5 days. Rx to [facility]. Make sure and take your regularly prescribed medications daily. Return to the ED if new or worsening symptoms. Follow up with PCP in the next 5 days for recheck of your labs. Sepsis Event Note (ED) - Evaluation Sepsis Screening Result: No Definite Risk <Viktoria Gary - Last Filed: 04/28/20 06:52> - Focused Exam Vital Signs: Vital Signs Temp Pulse Resp BP Pulse Ox 04/28/20 08:01 75 136/84 04/28/20 07:25 74 18 183/95 H 98 04/28/20 06:27 64 14 211/121 H 04/28/20 06:14 96.0 F L 63 16 214/127 H 100
[2020-04-28 07:17] LABS: CHLORIDE,CL 103 mmol/L (98-107); SODIUM,NA 141 mmol/L (136-145)
[2020-04-28 07:45] LABS: BUPRENORPHINE,URINE NEGATIVE (NEGATIVE); MARIJUANA,URINE POSITIVE (NEGATIVE); METHYLENEDIOXYMETHAMP,UR NEGATIVE (NEGATIVE); PHENCYCLIDINE,URINE NEGATIVE (NEGATIVE)
[2020-04-28] MEDS ORDERED: Potassium Chloride 10% 20 MEQ/15 ML Soln 15 ML UD Cup PO ONE (07:54)
[2020-04-28 08:01] VITALS: BP 136/84; PULSE 75
== END 2020-04-28 08:30 | disposition home or self-care (01) ==
LOC: VM.ED 05:59
DX: E86.0 Dehydration (principal); E87.6 Hypokalemia; F15.10 Other stimulant abuse, uncomplicated; R11.2 Nausea with vomiting, unspecified; I10 Essential (primary) hypertension; Z72.0 Tobacco use; Z88.8 Allergy status to other drugs, medicaments and biological substances; Z88.5 Allergy status to narcotic agent; Z79.899 Other long term (current) drug therapy
CPT/HCPCS: 36415; 80053; 80305-QW; 80307; 82150; 83690; 83735; 84484; 85025; 86140; 93005; 93010; 96374; 99284; 99285-25; A9270-GY; J0780; J7120

== ENCOUNTER 2024-02-23 19:38 | Emergency (ER) | payer MEDICAID, OTHER ==
[2024-02-23 20:04] LABS: BASOPHILS PERCENT AUTO 0.2 % (0.2-1.2); EOSINOPHILS ABSOLUTE AUTO 0.1 x10^3/uL (0.0-0.5); EOSINOPHILS PERCENT AUTO 1.4 % (0.0-4.0); HEMATOCRIT 38.8 % (33.0-47.0); HEMOGLOBIN 13.3 g/dL (12.0-16.0); IMMATURE GRAN ABSOLUTE AUTO 0.01 x10^3/uL (0.00-0.07); LYMPHOCYTES ABSOLUTE AUTO 1.5 x10^3/uL (1.0-4.8); LYMPHOCYTES PERCENT AUTO 17.3 % (25.0-50.0); MEAN CORPUSCULAR HEMOGLOBIN 29.1 pg (26.0-32.0); MEAN CORPUSCULAR HGB CONC 34.3 g/dL (32.0-36.0); MEAN CORPUSCULAR VOLUME 84.9 fL (78.0-93.0); MONOCYTES ABSOLUTE AUTO 0.4 x10^3/uL (0.0-0.8); MONOCYTES PERCENT AUTO 4.8 % (2.0-11.0); NEUTROPHILS ABSOLUTE AUTO 6.7 x10^3/uL (1.8-7.7); NEUTROPHILS PERCENT AUTO 76.2 % (50.0-80.0); PLATELET COUNT,PLT 174 x10^3/uL (130-400); RED BLOOD CELL COUNT 4.57 x10^6/uL (4.00-5.50); WHITE BLOOD CELL COUNT,WBC 8.8 x10^3/uL (4.0-10.0)
[2024-02-23] MEDS: Nitroglycerin 0.4 MG Tab.SL SL ONE (20:11)
[2024-02-23] MEDS: Aspirin 81 MG Tab.Chew PO ONE (20:11)
[2024-02-23] MEDS: Metoprolol Succinate 25 MG Tab.ER PO ONE (20:11)
[2024-02-23 20:24] LABS: A/G RATIO 0.87; ALANINE AMINOTRANSFERASE,ALT 28 U/L (14-59); ALBUMIN 3.4 g/dL (3.4-5.0); ALKALINE PHOSPHATASE 124 U/L (46-116); ASPARTATE AMNIOTRANSFERASE,AST 24 U/L (15-37); BILIRUBIN TOTAL 0.9 mg/dL (0.2-1.0); BLOOD UREA NITROGEN,BUN 12 mg/dL (7-18); CALCIUM 9.1 mg/dL (8.5-10.1); CARBON DIOXIDE,CO2 30 mmol/L (21-32); CHLORIDE,CL 104 mmol/L (98-107); CREATININE 0.9 mg/dL (0.55-1.02); GLUCOSE RANDOM 120 mg/dL (70-99); LIPASE 84 U/L (19-71); POTASSIUM,K 3.3 mmol/L (3.5-5.1); PROTEIN TOTAL,TP 7.3 g/dL (6.4-8.2); SODIUM,NA 142 mmol/L (136-145)
[2024-02-23 20:26] LABS: ANION GAP 11.3 mmol/L (5-15); ESTIMATED GFR 76 mL/min (>=60)
[2024-02-23] MEDS: hydrALAZINE 20 MG/ML SDV IVPUSH ONE ×2 (20:38→21:07)
[2024-02-23] MEDS: LORazepam 2 MG/ML SDV IVPUSH ONE (21:53)
[2024-02-23 23:33] VITALS: BP 127/79; PULSE 67
== END 2024-02-23 22:40 | disposition home or self-care (01) ==
LOC: VM.ED 19:38
DX: R07.89 Other chest pain (principal); I10 Essential (primary) hypertension; Z88.6 Allergy status to analgesic agent; Z88.8 Allergy status to other drugs, medicaments and biological substances; Z90.710 Acquired absence of both cervix and uterus
CPT/HCPCS: 36415; 80053; 83690; 83735; 84484; 85025; 93005; 96374; 96375; 99285; A9270; J0360; J2060; 71045

== ENCOUNTER 2024-04-01 04:25 | Emergency (ER) | payer MEDICAID, OTHER ==
[2024-04-01] MEDS ORDERED: Labetalol 20 MG/4 ML Syringe IVPUSH ONE ×2 (04:39→06:25)
[2024-04-01] MEDS ORDERED: Sodium Chloride 0.9% 1,000 ML IV ONE ×2 (04:40→06:00)
[2024-04-01] MEDS ORDERED: Morphine 2 MG/ML SYRINGE IVPUSH ONE (04:40)
[2024-04-01 04:53] LABS: APPEARANCE,URINE CLEAR (CLEAR); BILIRUBIN,URINE NEGATIVE (NEGATIVE); COLOR,URINE YELLOW (YELLOW); GLUCOSE,URINE 250 mg/dL (NEGATIVE); KETONES,URINE NEGATIVE (NEGATIVE); LEUKOCYTE ESTERASE,URINE NEGATIVE (NEGATIVE); NITRITE,URINE NEGATIVE (NEGATIVE); OCCULT BLOOD,URINE SMALL (NEGATIVE); PROTEIN,URINE 100 mg/dL (NEGATIVE); UROBILINOGEN,URINE 0.2 EU/dL (0.2)
[2024-04-01 04:57] LABS: BACTERIA,URINE NOT SEEN /HPF (NOT SEEN); MUCUS,URINE NOT SEEN /LPF (NOT SEEN); SQUAMOUS EPITHELIAL CELLS,UR OCCASIONAL /HPF (NOT SEEN); WBC,URINE 0-5 /HPF (NOT SEEN)
[2024-04-01 04:58] LABS: AMPHETAMINE, URINE POSITIVE (NEGATIVE); BARBITUATES,URINE NEGATIVE (NEGATIVE); BENZODIAZEPINES,URINE NEGATIVE (NEGATIVE); BUPRENORPHINE,URINE NEGATIVE (NEGATIVE); COCAINE,URINE NEGATIVE (NEGATIVE); MARIJUANA,URINE POSITIVE (NEGATIVE); METHADONE,URINE NEGATIVE (NEGATIVE); METHAMPHETAMINE,URINE POSITIVE (NEGATIVE); METHYLENEDIOXYMETHAMP,UR NEGATIVE (NEGATIVE); OPIATES,URINE NEGATIVE (NEGATIVE); OXYCODONE,URINE NEGATIVE (NEGATIVE); PHENCYCLIDINE,URINE NEGATIVE
[2024-04-01 04:59] LABS: BASOPHILS PERCENT AUTO 0.2 % (0.2-1.2); EOSINOPHILS ABSOLUTE AUTO 0.1 x10^3/uL (0.0-0.5); EOSINOPHILS PERCENT AUTO 1.5 % (0.0-4.0); HEMATOCRIT 38.8 % (33.0-47.0); HEMOGLOBIN 13.4 g/dL (12.0-16.0); IMMATURE GRAN ABSOLUTE AUTO 0.02 x10^3/uL (0.00-0.07); LYMPHOCYTES ABSOLUTE AUTO 3.2 x10^3/uL (1.0-4.8); LYMPHOCYTES PERCENT AUTO 35.1 % (25.0-50.0); MEAN CORPUSCULAR HEMOGLOBIN 29.1 pg (26.0-32.0); MEAN CORPUSCULAR HGB CONC 34.5 g/dL (32.0-36.0); MEAN CORPUSCULAR VOLUME 84.3 fL (78.0-93.0); MONOCYTES ABSOLUTE AUTO 0.5 x10^3/uL (0.0-0.8); MONOCYTES PERCENT AUTO 5.5 % (2.0-11.0); NEUTROPHILS ABSOLUTE AUTO 5.3 x10^3/uL (1.8-7.7); NEUTROPHILS PERCENT AUTO 57.5 % (50.0-80.0); PLATELET COUNT,PLT 220 x10^3/uL (130-400); WHITE BLOOD CELL COUNT,WBC 9.1 x10^3/uL (4.0-10.0)
[2024-04-01 05:00] LABS: INR 0.9 (0.9-1.1); PROTHROMBIN TIME 10.2 SEC (9.6-12.0)
[2024-04-01] MEDS ORDERED: Succinylcholine 200 MG/10 ML MDV ONE (05:04)
[2024-04-01 05:06] LABS: A/G RATIO 0.88; ALANINE AMINOTRANSFERASE,ALT 29 U/L (14-59); ALBUMIN 3.6 g/dL (3.4-5.0); ALKALINE PHOSPHATASE 127 U/L (46-116); ASPARTATE AMNIOTRANSFERASE,AST 25 U/L (15-37); BILIRUBIN TOTAL 0.7 mg/dL (0.2-1.0); BLOOD UREA NITROGEN,BUN 19 mg/dL (7-18); CALCIUM 8.8 mg/dL (8.5-10.1); CARBON DIOXIDE,CO2 24 mmol/L (21-32); CHLORIDE,CL 100 mmol/L (98-107); CREATINE KINASE,CK 96 U/L (26-192); GLUCOSE RANDOM 231 mg/dL (70-99); PROTEIN TOTAL,TP 7.7 g/dL (6.4-8.2); SODIUM,NA 140 mmol/L (136-145)
[2024-04-01 05:08] LABS: ANION GAP 18.4 mmol/L (5-15); ESTIMATED GFR 67 mL/min (>=60); ETHANOL BLOOD MEDICAL < 3 mg/dL (0-3); POTASSIUM,K 2.4 mmol/L (3.5-5.1)
[2024-04-01] MEDS ORDERED: Midazolam 1 MG/ML 2 ML SDV ONE ×3 (05:11→06:35)
[2024-04-01] MEDS ORDERED: Potassium Chloride Riders 20 MEQ in Premix Bag 1 BAG IV SCH (05:15)
[2024-04-01] MEDS ORDERED: Rocuronium 50 MG/5 ML Vial ONE ×2 (05:31→05:55)
[2024-04-01] MEDS ORDERED: propofoL 500 MG/50 ML 50 ML IV SCH (05:45)
[2024-04-01] MEDS ORDERED: Propofol 200 MG/20 ML SDV ONE ×2 (05:55→06:34)
[2024-04-01] MEDS ORDERED: levETIRAcetam 500 MG/5 ML SDV IVPUSH ONE ×2 (06:01→06:45)
[2024-04-01] MEDS ORDERED: fentaNYL 50 MCG/ML SDV IVPUSH ONE (06:50)
[2024-04-01] MEDS ORDERED: hydrALAZINE 20 MG/ML SDV IVPUSH ONE (06:50)
[2024-04-01] MEDS ORDERED: Lidocaine 1% 10 ML MDV ONE (06:55)
== END 2024-04-01 07:40 | disposition short-term general hospital (02) ==
LOC: VM.ED 04:25
DX: I60.9 Nontraumatic subarachnoid hemorrhage, unspecified (principal); R56.9 Unspecified convulsions; I67.1 Cerebral aneurysm, nonruptured; I63.81 Other cerebral infarction due to occlusion or stenosis of small artery; F12.90 Cannabis use, unspecified, uncomplicated; I10 Essential (primary) hypertension; F15.10 Other stimulant abuse, uncomplicated; E87.6 Hypokalemia; Z90.710 Acquired absence of both cervix and uterus; Z88.5 Allergy status to narcotic agent; Z88.8 Allergy status to other drugs, medicaments and biological substances
CPT/HCPCS: 31500; 36680; 51701; 70450; 71045; 80053; 80305-QW; 80307; 81001; 82550; 83735; 84484; 85025; 85610; 93005; 96361; 96365; 96368; 96375; 96376; 99291-25; 99292; J0330; J0360; J1920; J1953; J2250; J2270; J2704; J3010; J3480; J3490; J7030

== ENCOUNTER 2024-04-19 09:04 | Emergency (ER) | payer OTHER ==
[2024-04-19 11:18] VITALS: BP 162/108; PULSE 88
== END 2024-04-19 10:31 | disposition home or self-care (01) ==
LOC: VM.ED 09:04
DX: G47.00 Insomnia, unspecified (principal); F31.9 Bipolar disorder, unspecified; Z88.5 Allergy status to narcotic agent; Z88.8 Allergy status to other drugs, medicaments and biological substances
CPT/HCPCS: 99283; 99284